=== PATIENT | male | born 1965 | race Two or more races ===

== ENCOUNTER 2022-01-24 06:58 | Emergency (ER) | payer OTHER, SELFPAY ==
[2022-01-24 07:04] VITALS: BP 124/76; PULSE 76; RESP 19; TEMP 36.6; O2SAT 96; BMI 30.2
--- NOTE | 2022-01-24 07:36 | ED.ANXIETY ---
HPI - Anxiety General Chief Complaint: Anxiety Stated Complaint: anxiety not sleeping Time Seen by Provider: 01/24/22 07:28 Source: patient Mode of arrival: ambulatory Limitations: no limitations History of Present Illness HPI narrative: Patient comes to emergency room complaining of anxiety and not being able to sleep. Patient states that he is selling his house and going through divorce, states that he is under a lot of pressure. Patient denies suicidal or homicidal ideation. States that he ran out of trazodone. Related Data Previous Rx's Medication Instructions Recorded trazodone 50 mg tablet 50 mg PO BEDTIME PRN #10 tab 01/24/22 Allergies Allergy/AdvReac Type Severity Reaction Status Date / Time No Known Allergies Allergy Verified 01/24/22 07:42 Review of Systems Review of Systems: Constitutional : No Weight loss, No Fever, No Chills, No Night Sweats, No Fatigue, No Malaise ENT/Mouth : No Hearing loss, No Ear Pain, No Nasal Congestion, No Sinus Pain, No Hoarseness, No sore throat, No Rhinorrhea, No Swallowing Difficulty Eyes: No Eye Pain, No Swelling, No Redness, No Foreign Body, No Discharge, No Vision Changes Cardiovascular : No Chest Pain, No SOB, No Dyspnea on Exertion, No Orthopnea, No Edema, No Palpitations Respiratory : No Cough, No Sputum, No Wheezing, No Smoke Exposure, No Dyspnea Gastrointestinal : No Nausea, No Vomiting, No Diarrhea, No Constipation, No abdominal Pain, No Hematochezia, No Melena Genitourinary : no irregular bleeding, No Dysuria, No Urinary Frequency, No Hematuria, No Urinary Incontinence, No Urgency, No Flank Pain, No Urinary Flow Changes, No Hesitancy Musculoskeletal : No joint pain, No Myalgias, No Joint Swelling Skin : No Skin Lesions, No rash Neuro : No Weakness, No Numbness, No Paresthesias, No Loss of Consciousness, No Dizziness, No Headache Psych : Complaining of anxiety, denies suicidal or homicidal ideation Heme/Lymph: No Bruising, No Bleeding,No Lymphadenopathy Endocrine : No Polyuria, No Polydipsia, No Temperature Intolerance PMF Past Medical History Medical History (Updated 01/24/22 @ 07:43 by Donna Mccain MD) Anxiety Social History Social History Alcohol intake: never Patient Tobacco Use Status: Never used Tobacco Use of substances other than those prescribed or required for medical reasons: No Advance Directives: No Advance Directives Information Provided: No Physical Exam Vital Signs: Vital Signs: Last Vital Signs Temp 98 F 01/24/22 07:04 Pulse 76 01/24/22 07:04 Resp 19 01/24/22 07:04 BP 124/76 01/24/22 07:04 Pulse Ox 96 01/24/22 07:04 BMI result Body Mass Index 30.2 Const: Other: Appearance: Alert. Oriented X3. No acute distress. Eyes: Pupils equal, round and reactive to light. ENT: Pharynx normal. Neck: Normal inspection. Neck supple. No lymph nodes noted. No crepitus CVS: Normal heart rate and rhythm. Pulses normal. Normal S1 and S2 Respiratory: No respiratory distress. Breath sounds normal. No Wheezing. No rales Abdomen: Soft and nontender. No rigidity. No distention. good BS x4 Skin: Skin warm and dry. Normal skin color. Normal skin turgor. Extremities: No lower extremity edema. No Lacerations. No Rash Neuro: Oriented X 3. No motor deficit. No sensory deficit. Moving all extermities. No slurred speech. Cranial nerves 2-12 grossly intact Psych: Calm, cooperative, does not seem anxious Course Course Course Narrative: Patient is asking if there is anything that the hospital can do to help him sell his house. I discussed with the patient that unfortunately case management does not have any real estate/realtor capabilities I discussed with the patient that I can give him him a prescription for a few days of trazodone, any other medication would have to go to his primary care physician Discharge Plan Discharge Clinical Impression: Acute anxiety, Insomnia Patient Disposition: Home, Self-Care Instructions: Insomnia (ED), Anxiety (ED) Additional Instructions: Please follow-up with your primary care physician tomorrow. If you have any worsening or new symptoms, please return to the emergency room or call 911 Prescriptions: New trazodone 50 mg tablet 50 mg PO BEDTIME PRN (Reason: insomnia) Qty: 10 0RF Interventions: ED Discharge Assessment Last Done: 01/24/22 07:52 Discharge Date/Time: 01/24/22 07:52
== END 2022-01-24 07:52 | disposition home or self-care (01) ==
PROVIDERS: Emergency Provider Emergency Medicine; PCP Internal Medicine
DX: F41.1 Generalized anxiety disorder (principal); F43.0 Acute stress reaction; G47.00 Insomnia, unspecified; Z63.5 Disruption of family by separation and divorce
CPT/HCPCS: 99283; 99284

== ENCOUNTER 2024-01-08 17:57 | Emergency (ER) | payer OTHER, SELFPAY ==
--- NOTE | ~2024-01-08 | XR_ITS ---
EXAMINATION: XR HAND, RIGHT CLINICAL INFORMATION: Fifth digit swelling/redness. COMPARISON: None available. TECHNIQUE: PA, lateral, and oblique views of the right hand. FINDINGS: No fracture or subluxation. No unexpected radiopaque foreign bodies. Diffuse soft tissue swelling that is subjectively slightly more prominent around the fifth digit. XR/XR hand RT 2V IMPRESSION: 1. Diffuse soft tissue swelling. 2. No acute osseous abnormalities. 3. No unexpected radiopaque foreign bodies.
--- NOTE | 2024-01-08 18:26 | ED_ITS ---
HPI - Extremity Injury (Upper) General Chief Complaint: Extremity Injury, Upper Stated Complaint: swollen hand/finger Time Seen by Provider: 01/08/24 22:25 Related Data Previous Rx's ?Medication ?Instructions ?Recorded trazodone 50 mg tablet 50 mg PO BEDTIME PRN insomnia #10 01/24/22 tabs cephalexin 500 mg capsule 500 mg PO Q12H 7 days #13 caps 01/08/24 doxycycline hyclate 100 mg capsule 100 mg PO BID 7 days #13 caps 01/08/24 Allergies Allergy/AdvReac Type Severity Reaction Status Date / Time No Known Allergies Allergy Verified 01/08/24 18:26 [facility] Past Medical History Medical History (Updated 01/09/24 @ 00:02 by Background Emily) Anxiety Social History Social History Alcohol intake: never Patient Tobacco Use Status: Never used Tobacco Smoked in Last 30 Days: No Use of substances other than those prescribed or required for medical reasons: No Advance Directives: No Advance Directives Information Provided: No Physical Exam Vital Signs: Vital Signs: Last Vital Signs Temp 98.4 F 01/08/24 21:47 Pulse 88 01/08/24 21:47 Resp 20 01/08/24 21:47 BP 145/89 H 01/08/24 21:47 Pulse Ox 95 01/08/24 21:47 O2 Del Method Room Air 01/08/24 21:47 BMI result Body Mass Index 34.4 Course Course Course Narrative: RME: 58 year-old M w/ PMHx anxiety presenting to the ED c/o swollen right 5th digit x3 days, productive cough, congestion and frequent UTIs. denies injury/fall. ?FB to R pinky finger +R 5th digit with swelling/erythema and ?FB. ttp. NV intact Viral testing, XR, UA ordered Full HPI, ROS and PE to be performed by primary ED provider. Medications Administered Discontinued Medications Generic Name Dose Route Start Last Admin Trade Name Freq PRN Reason Stop Dose Admin Cephalexin HCl 500 mg 01/08/24 23:35 01/08/24 23:45 Cephalexin 500 Mg Capsule PO 01/08/24 23:36 500 mg ONCE ONE Administration Doxycycline Monohydrate 100 mg 01/08/24 23:35 01/08/24 23:45 Doxycycline Monohydrate 100 Mg Capsule PO 01/08/24 23:36 100 mg ONCE ONE Administration Medical Decision Making Lab Data Labs: Lab Results 01/08/24 01/08/24 Range/Units 19:34 19:39 Urine Color Dark Yellow Urine Appearance Cloudy Urine pH 5.5 (5.0-9.0) Ur Specific [place] 1.020 (1.005-1.025) Urine Protein Trace (Neg-Trace) mg/dL Urine Glucose (UA) Negative (Negative) mg/dL Urine Ketones Trace (Negative) mg/dL Urine Blood Moderate (2+) H (Negative) Urine Nitrite Positive H (Negative) Ur Leukocyte Esterase Large (3+) H (Negative) Urine RBC 3-5 H (0-2) /HPF Urine WBC >50 H (0-5) /HPF Ur Squamous Epith Cells 0-2 (0-2) /HPF Urine Bacteria 4+ (None Seen) Hyaline Casts 3-5 (0-2) /LPF Influenza Type A (PCR) NEGATIVE (Negative) Influenza Type B (PCR) NEGATIVE (Negative) RSV RNA Qual (PCR) NEGATIVE (Negative) SARS-CoV-2 RNA (RT-PCR) NEGATIVE (Negative) Discharge Plan Discharge Clinical Impression: Cellulitis, UTI (urinary tract infection), URI (upper respiratory infection) Patient Disposition: Home, Self-Care Instructions: Urinary Tract Infection in Men (ED), Cellulitis (ED), Upper Respiratory Infection (ED), Warm Compress or Soak (ED) Additional Instructions: Recommend follow-up with primary care provider and urologist. Return to the ED immediately for inability to move fingers, increased swelling, worsening redness, red streaks, pus discharge, foul odor, inability to flex and extend finger, chest pain, shortness of breath, weakness, dizziness, abdominal pain, nausea, vomiting, dysuria, hematuria, or any other concerning symptoms. Prescriptions: New cephalexin 500 mg capsule 500 mg PO Q12H 7 Days Qty: 13 0RF Rx Instructions: received first dose in the ED doxycycline hyclate 100 mg capsule 100 mg PO BID 7 Days Qty: 13 0RF Rx Instructions: Received first dose in the ED. No Action trazodone 50 mg tablet 50 mg PO BEDTIME PRN (Reason: insomnia) Qty: 10 0RF Interventions: ED Discharge Assessment Last Done: 01/08/24 23:47 Discharge Date/Time: 01/08/24 23:48 Print Language: Chadian
[2024-01-08 18:27] VITALS: BP 157/93; PULSE 103; RESP 16; TEMP 36.1; O2SAT 95; BMI 34.4
--- NOTE | 2024-01-08 19:41 | MHC.EDTECH ---
PATIENT RSV/COVID SWAB AND URINE SAMPLE COLLECTED AND SENT TO LAB .
[2024-01-08 19:46] LABS: Appearance Urine Cloudy; Color Urine Dark Yellow; Glucose Urine UA Negative (Negative); Leukocyte Esterase Urine Large (3+) (Negative); Nitrite Urine Positive (Negative); PH 5.5 (5.0-9.0); UMIC TRIGGER UACC YES; Urine Blood Moderate (2+) (Negative); Urine Ketones Trace mg/dL (Negative); Urine Protein Trace mg/dL (Neg-Trace)
[2024-01-08 19:56] LABS: Bacteria Urine 4+ (None Seen); Squamous Epithelial Cell Urine 0-2 /HPF (0-2); UACC Culture Trigger YES; WBC Urine >50 /HPF (0-5)
[2024-01-08 20:21] LABS: Influenza A PCR NEGATIVE (Negative); Influenza B PCR NEGATIVE (Negative); Resp Syncy Virus RNA Qual PCR NEGATIVE (Negative); SARS COV2 PCR INHOUSE NEGATIVE (Negative)
--- NOTE | 2024-01-08 21:28 | PC.NURSE ---
this rn assumed care of pt. pt reporting 3 days of right pinky swelling and pain. pt noted to have swelling and redness to the right pinky, pt able to move the pinky at this time. pt reports he is unsure the mechanism of injury. pt reports hx of uti and reports wanting to be tested.
[2024-01-08 21:47] VITALS: BP 145/89; PULSE 88; RESP 20; TEMP 36.9; O2SAT 95
--- NOTE | 2024-01-08 23:04 | ED.GENADULT ---
HPI - General Adult General Chief complaint: Extremity Injury, Upper Stated complaint: swollen hand/finger Time Seen by Provider: 01/08/24 22:25 Source: patient Mode of arrival: ambulatory Limitations: no limitations History of Present Illness HPI narrative: 58 yold male with pmh of BPH, hypertension, recureent UTIS, presents to the ED for URI symptoms, and right index finger swelling with redness of fifth finger. Patient states he might have been bit by insects his house. Patient denies any other symptoms. Related Data Previous Rx's Medication Instructions Recorded trazodone 50 mg tablet 50 mg PO BEDTIME PRN insomnia #10 01/24/22 tabs cephalexin 500 mg capsule 500 mg PO Q12H 7 days #13 caps 01/08/24 doxycycline hyclate 100 mg capsule 100 mg PO BID 7 days #13 caps 01/08/24 Allergies Allergy/AdvReac Type Severity Reaction Status Date / Time No Known Allergies Allergy Verified 01/08/24 18:26 Review of Systems Review of Systems: Coughing. Right pinky swollen and tenderness. Yes all other systems are reviewed and are negative [facility] Past Medical History Medical History (Updated 01/09/24 @ 00:02 by Monica Diaz) Anxiety Social History Social History Alcohol intake: never Patient Tobacco Use Status: Never used Tobacco Smoked in Last 30 Days: No Use of substances other than those prescribed or required for medical reasons: No Advance Directives: No Advance Directives Information Provided: No Physical Exam ED Vital Signs: Vital Signs - 24 hr 01/08/24 18:27 01/08/24 21:47 Temperature 97 F 98.4 F Pulse Rate 103 H 88 Respiratory Rate 16 20 Blood Pressure 157/93 H 145/89 H Pulse Oximetry 95 95 Oxygen Delivery Method Room Air Room Air BMI result Body Mass Index 34.4 Const General: cooperative, healthy appearing, comfortable, no acute distress, well developed, alert and awake Orientation/consciousness: oriented to person, oriented to place, oriented to time and patient oriented x3 HENMT Head: Yes normal to inspection, Yes No palpable skull fracture present, Yes normocephalic and Yes atraumatic Eyes General: appearance normal, both eyes and all related structures Neck Neck: Yes normal visual inspection, Yes full ROM, Yes no lymphadenopathy, Yes no meningeal signs, Yes trachea midline, Yes supple, No anterior neck swelling and No tender Chest Chest palpation & inspection: normal inspection of the chest and normal palpation of entire chest wall Resp Effort & Inspection: normal respiratory effort and able to speak in complete sentences Auscultation: clear to auscultation bilaterally Cardio Jugular venous distension: no JVD Heart sounds: S1 normal heart sound present and S2 normal heart sound present GI Inspection: Yes normal to inspection Palpation (GI): Soft to palpation, not firm, nontender, no guarding and not rigid General: No CVA tenderness and Yes no CVA tenderness Back/Spine/Pelvis Back: no CVA tenderness, No CVA tenderness and No back tenderness Skin General skin exam: no rashes or lesions noted, elasticity normal, turgor normal and atrophy Neuro General: oriented to person, oriented to place, oriented to time, patient oriented x3, gait normal, tone normal, moves all extremities, Normal light touch and pain sensation, no meningeal signs, no focal motor deficits, CN's II-XI intact bilaterally and normal sensation to monofilament Extrem Other: Patient has complete range of motion of finger. Warm and tender on palpation capillary refill is intact. Negative for red streaks or pus discharge. Not suspecting tenosynovitis. General: Yes normal to inspection, Yes full ROM and Yes capillary refill normal Psych Appearance: grossly normal, well kempt and not disheveled Medications Administered Discontinued Medications Generic Name Dose Route Start Last Admin Trade Name Freq PRN Reason Stop Dose Admin Cephalexin HCl 500 mg 01/08/24 23:35 01/08/24 23:45 Cephalexin 500 Mg Capsule PO 01/08/24 23:36 500 mg ONCE ONE Administration Doxycycline Monohydrate 100 mg 01/08/24 23:35 01/08/24 23:45 Doxycycline Monohydrate 100 Mg Capsule PO 01/08/24 23:36 100 mg ONCE ONE Administration Medical Decision Making Medical Decision Making [facility] Narrative: 58-year-old man CT of recurrent urinary tract infections, BPH, hypertension, presents ED for URI symptoms and right pinky redness swelling. Patient also wanted use urine checked to see if he has a UTI. Patient has recurrent urinary tract infection since reent prostate procedure by [facility] urologist. Patient denies any dysuria, hematuria, flank pain, nausea, vomiting, abdominal pain, or testicular pain. Patient denies any penile discharge or penile lesions. Patient just wanting to see if he has a UTI. Patient just finished oral antibiotics of urinary tract infection last week. His urologist from [facility] informed him he will have recurrent urinary tract infections for a while due to 3 BPH procedures on prostate. No need for any labs or imaging. Patient not in any pain. Patient denies any distress. Patient well-appearing. Patient states history of chronic UTIs. Not suspecting tenosynovitis Differential Diagnosis Differential Diagnoses: The differential diagnosis associated with the presentation includes (UTI, cellulitis, osteomyelitis,) Admission/Observation Consideration of admission/observation: Escalation of care including admission/observation considered Lab Data MDM Lab Attestation statement: I reviewed the patient's lab results. Labs: Lab Results 01/08/24 01/08/24 Range/Units 19:34 19:39 Urine Color Dark Yellow Urine Appearance Cloudy Urine pH 5.5 (5.0-9.0) Ur Specific [place] 1.020 (1.005-1.025) Urine Protein Trace (Neg-Trace) mg/dL Urine Glucose (UA) Negative (Negative) mg/dL Urine Ketones Trace (Negative) mg/dL Urine Blood Moderate (2+) H (Negative) Urine Nitrite Positive H (Negative) Ur Leukocyte Esterase Large (3+) H (Negative) Urine RBC 3-5 H (0-2) /HPF Urine WBC >50 H (0-5) /HPF Ur Squamous Epith Cells 0-2 (0-2) /HPF Urine Bacteria 4+ (None Seen) Hyaline Casts 3-5 (0-2) /LPF Influenza Type A (PCR) NEGATIVE (Negative) Influenza Type B (PCR) NEGATIVE (Negative) RSV RNA Qual (PCR) NEGATIVE (Negative) SARS-CoV-2 RNA (RT-PCR) NEGATIVE (Negative) Tests considered The following testing was considered but not selected: CT scan Abdomen/pelvis Prescription Management I considered prescription management with: Antibiotic Discharge Plan Discharge Clinical Impression: Cellulitis, UTI (urinary tract infection), URI (upper respiratory infection) Patient Disposition: Home, Self-Care Instructions: Urinary Tract Infection in Men (ED), Cellulitis (ED), Upper Respiratory Infection (ED), Warm Compress or Soak (ED) Additional Instructions: Recommend follow-up with primary care provider and urologist. Return to the ED immediately for inability to move fingers, increased swelling, worsening redness, red streaks, pus discharge, foul odor, inability to flex and extend finger, chest pain, shortness of breath, weakness, dizziness, abdominal pain, nausea, vomiting, dysuria, hematuria, or any other concerning symptoms. Prescriptions: New cephalexin 500 mg capsule 500 mg PO Q12H 7 Days Qty: 13 0RF Rx Instructions: received first dose in the ED doxycycline hyclate 100 mg capsule 100 mg PO BID 7 Days Qty: 13 0RF Rx Instructions: Received first dose in the ED. No Action trazodone 50 mg tablet 50 mg PO BEDTIME PRN (Reason: insomnia) Qty: 10 0RF Interventions: ED Discharge Assessment Last Done: 01/08/24 23:47 Discharge Date/Time: 01/08/24 23:48 Print Language: Barbadian
[2024-01-08] MEDS: cephALEXin 500 MG CAPSULE PO (23:45)
[2024-01-08] MEDS: Doxycycline Monohydrate 100 MG CAPSULE PO (23:45)
== END 2024-01-08 23:48 | disposition home or self-care (01) ==
PROVIDERS: Physician Assistant; Emergency Provider Internal Medicine; PCP Internal Medicine
DX: L03.011 Cellulitis of right finger (principal); N39.0 Urinary tract infection, site not specified; J06.9 Acute upper respiratory infection, unspecified; I10 Essential (primary) hypertension; Z11.52 Encounter for screening for COVID-19; Z20.828 Contact with and (suspected) exposure to other viral communicable diseases; Z87.440 Personal history of urinary (tract) infections
CPT/HCPCS: 0241U; 73120; 81001; 87086; 87088; 87186; 99283; 99284